=== PATIENT | male | born 1965 | race Caucasian/White ===

== ENCOUNTER 2017-02-09 23:16 | Emergency (ER) | payer MEDICARE, MEDICAID ==
--- NOTE | 2017-02-10 00:06 | ED ---
I, Oh,Josi, scribed for Jerry Carlos MD on 02/09/17 at 2341 . Upper Extremity Pain - HPI Summary HPI Summary: This 51 y/o male presents to ED via ambulance for numbness/tingling of bilat upper extremities since today PM. Pt was working on computer at time of onset. He states that he had another intermittent episode of arm tingling and numbness 2 days ago. Negative known injury. PMHx is significant for chronic neck pain s/ p c3-c7 laminectomy, diskectomy, fusion, and plating. Primary care involves Dr. Rosenberg. - History of Current Complaint Chief Complaint: EDExtremityUpper Stated Complaint: HAND/ARM NUMBNESS Time Seen by Provider: 02/09/17 23:33 Hx Obtained From: Patient, Medical Records Mechanism Of Injury: Unknown Onset/Duration: Still Present Timing: Constant Severity Initially: Moderate Severity Currently: Moderate Aggravating Factor(s): Nothing Alleviating Factor(s): Nothing Associated Signs & Symptoms: Positive: Numbness/Tingling - Allergies/Home Medications Allergies/Adverse Reactions: Allergies Allergy/AdvReac Type Severity Reaction Status Date / Time No Known Allergies Allergy Verified 12/26/15 15:44 PMH/Surg Hx/FS Hx/Imm Hx Endocrine/Hematology History: Denies: Hx Diabetes Cardiovascular History: Denies: Hx Hypertension, Hx Pacemaker/ICD Respiratory History: Reports: Hx Asthma History: Denies: Hx Renal Disease Sensory History: Denies: Hx Hearing Aid Psychiatric History: Denies: Hx Panic Disorder - Surgical History Surgery Procedure, Year, and Place: C3-C7 LAMINCECTOMY [facility] 08/10,C5-6 AND C6-7 CERVICAL DISKECTOMY AND FUSION AND PLATING,HYDROCEPHALOS SHUNT 2005(XRAYS DONE IN [address] COHN), HERNIA 1984 - Family History Known Family History: Positive: Hypertension - Social History Alcohol Use: None Hx Substance Use: No Substance Use Type: Reports: None Hx Tobacco Use: No Smoking Status (MU): Never Smoked Tobacco Review of Systems Negative: Fever Positive: Paresthesia - Bilat upper extremities, Numbness - bilat upper extremities All Other Systems Reviewed And Are Negative: Yes Physical Exam Triage Information Reviewed: Yes Vital Signs Reviewed: Yes Appearance: Positive: Well-Appearing, No Pain Distress, Obese Skin: Positive: Warm Head/Face: Positive: Normal Head/Face Inspection Eyes: Positive: NATE ENT: Positive: Hearing grossly normal Neck: Positive: Supple Respiratory/Lung Sounds: Positive: Breath Sounds Present Cardiovascular: Positive: RRR Abdomen Description: Positive: Nontender, Soft Bowel Sounds: Positive: Present Musculoskeletal: Positive: Strength/ROM Intact Neurological: Positive: Other - mild paresthesias n fo hand, from Psychiatric: Positive: Affect/Mood Appropriate Diagnostics - Laboratory Lab Statement: Any lab studies that have been ordered have been reviewed, and results considered in the medical decision making process. - CT C-spine CT Interpretation: Positive (See Comments) - Straightening of cervical lordosis , possibly due to post-op changes. Anterior fixation C5-C7 and laminectomies C2- C7. Prominent left falcine calcification incidentally notd. Partly seen right ventriculoperitoneal shunt catheter. CT Interpretation Completed By: Radiologist Re-Evaluation - Re-Evaluation First Eval Comment: results d/w pt Course/Dx - Diagnoses Provider Diagnoses: Paresthesia Discharge - Discharge Plan Condition: Stable Disposition: HOME Patient Education Materials: Paresthesia (ED) Referrals: Seda Rosenberg MD [Primary Care Provider] - Lynda Ruffin MD [Medical Doctor] - 2 Days The documentation as recorded by the Yousif wall Soohyun accurately reflects the service I personally performed and the decisions made by me, Jerry Carlos MD.
[2017-02-10 02:42] VITALS: BP 115/74
--- NOTE | 2017-02-10 07:51 | RAD ---
Indication: Paresthesias of the arm with neck surgery since 2009. CT of the cervical spine was obtained in the axial plane. Sagittal and coronal reconstructed images were obtained. Ventricular shunt is in place. There is been laminectomy from C3 through C7. There is anterior fusion of C5-C7 with anterior plate and screws. The study is limited due to patient's body habitus. At C2-C3 there is no protrusion present. No central or foraminal stenosis is noted. Mild facet hypertrophy is noted. At C3-C4 spondylitic ridge with broad-based protrusion is noted. Bilateral uncovertebral joint hypertrophy narrows both foramen. At C4-C5 postop changes are noted. No central or foraminal stenosis is noted. At C5-C6 and C6-C7 there is anterior fusion. Intervertebral foramen appear patent. Lung apices are unremarkable. 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 Bilateral foraminal stenosis is noted. Laminectomies from C3 through C7 with anterior fusion of C5-C6 and C6-C7.
== END 2017-02-10 02:41 | disposition home or self-care (01) ==
LOC: ED 23:16
DX: R20.9 Unspecified disturbances of skin sensation (principal)
CPT/HCPCS: 72125; 99283